=== PATIENT | female | born 1975 | race Two or more races ===

== ENCOUNTER 2021-12-14 18:11 | Emergency (ER) | payer OTHER ==
[~2021-12-14] VITALS: Ht 160 cm; Wt 60.3 kg
[2021-12-14 19:48] VITALS: BP 117/77
[2021-12-14] MEDS ORDERED: OXYCODONE W/ ACETAMINOPHEN 5/325MG TABLET PO ONE (22:45)
[2021-12-14] MEDS ORDERED: KETOROLAC TROMETH 60MG/2ML VIAL IM ONE (23:00)
[2021-12-14] MEDS ORDERED: AZIT250T9 PO (23:11)
[2021-12-14] MEDS ORDERED: PERCOT PO (23:11)
== END 2021-12-14 23:25 | disposition home or self-care (01) ==
LOC: ER 18:12
DX: S29.011A Strain of muscle and tendon of front wall of thorax, initial encounter (principal); Z98.51 Tubal ligation status; W01.0XXA Fall on same level from slipping, tripping and stumbling without subsequent striking against object, initial encounter; Y93.89 Activity, other specified; Y92.89 Other specified places as the place of occurrence of the external cause; Y99.8 Other external cause status
CPT/HCPCS: 71101; 96372; 99283; J1885